=== PATIENT | female | born 1990 ===

== ENCOUNTER 2017-01-13 14:36 | Emergency (ER) | payer BC ==
--- NOTE | 2017-01-13 14:59 | UC ---
Complaint Female HPI - HPI Summary HPI Summary: Pt presents with c/o of dysuria, frequency, urgency X 4 days. pt states that she has chronic UTI's and was under the care of a urologist in [place] and was given Bactrim to take with first onset of urinary symptoms. Pt reports that she has taken 1 tablet over the weekend but continues to have worsening urinary symptoms. - History Of Current Complaint Chief Complaint: UCGU Stated Complaint: URINARY COMPLAINT Time Seen by Provider: 01/13/17 14:47 Hx Obtained From: Patient Hx Last Menstrual Period: 01/04/17 ?: No Onset/Duration: Sudden Onset, Lasting Days, Still Present, Worse Since - onset Timing: Constant Severity Initially: Mild Character: Burning Aggravating Factor(s): Urination Associated Signs And Symptoms: Positive: Negative - Risk Factors Ovarian Torsion Risk Factor: Reproductive Age - Allergies/Home Medications Allergies/Adverse Reactions: Allergies Allergy/AdvReac Type Severity Reaction Status Date / Time Nitrofurantoin Allergy Vomiting Verified 01/13/17 14:44 Home Medications: Home Medications Norethin Acet & Estrad-Fe [Blisovi 24 Fe 1-20 mg-Mcg(24)] 1 tab PO DAILY [History Confirmed 01/13/17] PMH/Surg Hx/FS Hx/Imm Hx Previously Healthy: Yes GI/ History: Other - UTI Other GI/ History: UTI - Surgical History Surgical History: None - Family History Known Family History: Positive: Cardiac Disease - Social History Occupation: Employed Full-time Lives: With Family Alcohol Use: None Substance Use Type: None Smoking Status (MU): Never Smoked Tobacco Have You Smoked in the Last Year: No Review of Systems Constitutional: Negative Skin: Negative Eyes: Negative ENT: Negative Respiratory: Negative Cardiovascular: Negative Gastrointestinal: Negative Genitourinary: Dysuria, Frequency, Urgency Motor: Negative Neurovascular: Negative Musculoskeletal: Negative Neurological: Negative Psychological: Negative All Other Systems Reviewed And Are Negative: Yes Physical Exam Triage Information Reviewed: Yes Appearance: Well-Appearing Vital Signs: Initial Vital Signs Temp 98.5 F 01/13/17 14:39 Pulse 81 01/13/17 14:39 Resp 14 01/13/17 14:39 BP 122/71 01/13/17 14:39 Pulse Ox 100 01/13/17 14:39 Vital Signs Reviewed: Yes Eye Exam: Normal ENT Exam: Normal Neck exam: Normal Respiratory Exam: Normal Cardiovascular Exam: Normal Abdominal Exam: Normal Abdomen Description: Positive: Nontender Musculoskeletal Exam: Normal Neurological Exam: Normal Psychological Exam: Normal Skin Exam: Normal Complaint Female Dx - Differential Dx/Diagnosis Differential Diagnosis/HQI/PQRI: Urinary Tract Infection Provider Diagnoses: UTI Discharge - Discharge Plan Condition: Stable Disposition: HOME Prescriptions: Cephalexin CAP* [Keflex 500 CAP*] 500 mg PO Q8H #15 cap Phenazopyridine TAB* [Pyridium 100 mg TAB*] 100 mg PO TID #6 tab Patient Education Materials: Urinary Tract Infection in Women (ED) Referrals: [facility] [place] [facility] [Outside] - If Needed Cameron Bauer MD [Medical Doctor] - If Needed Additional Instructions: Please follow up with your PCP. We have provided a referral number for area PCP 's as well as a referral to a Urologist. Please establish care with an area provider to maintain continuity of care.
[2017-01-13 15:04] VITALS: BP 122/71
--- NOTE | 2017-01-16 08:07 | UC ---
Progress - Progress Note Progress Note: + urine cx, sensitive to the keflex she is on. complete abx and pyridum and f/u with pcp
== END 2017-01-13 15:06 | disposition home or self-care (01) ==
LOC: UCCORT 14:36
DX: N39.0 Urinary tract infection, site not specified (principal); B96.20 Unspecified Escherichia coli [E. coli] as the cause of diseases classified elsewhere; Z87.440 Personal history of urinary (tract) infections
CPT/HCPCS: 81003; 87077; 87086; 87186; 99202; G0463